=== PATIENT | female | born 1945 | race Caucasian/White ===

== ENCOUNTER 2022-08-12 09:31 | Outpatient (REF) | payer MEDICARE, SELFPAY ==
--- NOTE | 2022-08-12 | PFT_ITS ---
INDICATION: Asthma. SPIROMETRY: 1. FEV1 to FVC 85% with an FEV1 of 2.28 L, which is 99% predicted; an FVC of 2.68 L which is 88% predicted. No significant response to bronchodilators noted. 2. Maximum voluntary ventilation 95% predicted. LUNG VOLUMES: Total lung capacity 95% predicted. DIFFUSION CAPACITY: DLCO 58% predicted. COMPARISONS: None. INTERPRETATION: No obstructive nor restrictive ventilatory defects identified. No significant response to bronchodilators noted. Normal maximum voluntary ventilation. The patient does have isolated moderate diffusion impairment. Therefore, need to consider underlying interstitial lung conditions and/or pulmonary vascular conditions. This number should also be corrected for hemoglobin. Clinical correlation warranted. Kash Hyatt MD MR/MODL / [id number]
== END 2022-08-12 09:32 | disposition home or self-care (01) ==
LOC: HO.RESP 09:31
PROVIDERS: PCP Internal Medicine; Visit Provider Internal Medicine
DX: J45.50 Severe persistent asthma, uncomplicated (principal)
CPT/HCPCS: 94060; 94727; 94729